=== PATIENT | female | born 1980 | race Caucasian/White ===

== ENCOUNTER 2025-09-22 20:33 | Emergency (ER) | payer BC, SELFPAY ==
--- OUTSIDE RECORDS SUMMARY | 2025-09-22 20:35 | XMS_ITS | Clinical Summary ---
Author Organization [employer] [facility] & [facility] Address [address] [place] [address] Care Team Providers Care Ladle Repairman Name Role Phone Kenya Lee MD Primary Care Provider Allergies No known active allergies Medications MedicationSigDispense QuantityRefillsLast FilledStart DateEnd DateStatus cholecalciferol (Vitamin D-3) 2,000 unit capsule 5Active cyanocobalamin (Vitamin B-12) 1,000 mcg tablet Indications:Routine general medical examination at a health care facilityTake 1 Tablet (1,000 mcg) by mouth once daily.5Active Active Problems ProblemNoted DateDiagnosed DateMyxomatous degeneration of mitral valve07/15/2025 Sinus moeygdfhpvy32/14/2025dult congenital heart tvbpxvt0104/28/2022ap smear for cervical cancer lwqyychjj38/01/2022 Overview (07/01/2022): 04/2022 NIL/HPV negative. Plan: Pap/HPV due 04/2027. Mitral valve iozxzstz34/05/2019Syncope and /05/2019 Encounters DateTypeDepartmentCare BhvhKqqjfffzyxb53/16/2025Orders Only [facility] [address] [place] [address] Sean Manuel MD 1 scan: (1-Ord) NFLD-EKG-07/15/2510 9:30 AM CDTOffice Visit [facility] [address] [place] [address] Sean Manuel MD Follow Up07/15/20257389Fisobb75/09/2025Travelfrom Last 3 Months Immunizations ImmunizationAdministration DatesNext DueCOVID-19 vaccine (GoSquaredBioNTBrightFunnel 30mcg/0.3mL) PF, MDV110/31/2020INFLUENZA, IIV3 PF (AGE >= 6 MO)07/03/2024 Influenza, WDL335,07/05/2022,07/10/2021Influenza, IIV4 (=>6mos) MDV 07/10/2019Influenyas,CCIIV4 PRESERV FREE07/16/2020,08/15/2018Tdap04/14/2021 Family History Medical HistoryRelationNameCommentsMitral valve prolapseFatherCancer-breast Maternal AuntMitral valve prolapseSisterCancer-ovarianNo Family HistoryRelation NameStatusCommentsFatherMaternal AuntSister Social History Tobacco UseTypesPacks/DayYears UsedDateSmoking Tobacco: NeverPassive Smoke Exposure: NeverSmokeless Tobacco: Never Tobacco Cessation:Counseling Given: No Alcohol UseStandard Drinks/WeekCommentsYes1 (1 standard drink = 0.6 oz pure alcohol)PHQ-2AnswerDate RecordedPHQ-2 TOTAL SFRDT760Social Connections AnswerDate RecordedDo you often feel lonely or isolated from those around you?0 09/13/2024lcohol UseAnswerDate RecordedHow often do you have a drink containing alcohol?How many drinks containing alcohol do you have on a typical day when you are drinking?How often do you have five or more drinks on one occasion?Financial Resource StrainAnswerDate Recorded Difficulty of Paying Living Ffhzxutf223/13/2024ifficulty of Paying Living ExpensesNot on file09/13/2024Food InsecurityAnswerDate RecordedDo you worry your food will run out before you are able to buy more?Transportation NeedsAnswerDate RecordedDoes lack of transportation keep you from medical appointments?112/13/2024Does lack of transportation keep you from work, meetings or getting things that you need?Housing StabilityAnswerDate Recorded What is your housing situation today?UtilitiesAnswerDate RecordedDo you have trouble paying for utilities (for example, heat, electricity, water, phone)?regnantCommentsNoSex and Gender InformationValueDate Recorded Sex Assigned at BirthNot on fileLegal TwmJydjxt09/14/2013 5:22 AM CSTGender IdentityNot on fileSexual OrientationNot on fileOccupationIndustryJob Start Date Job End DateNot on fileNot on fileNot on fileNot on file Obstetrics History GravidaParaTermPretermABIABSABEctopicMultipleLivingLive Nxsief435011LyamPtbcbel GATotal LaborLabor/2nd/1ebQycfmqKxiBxhqErsdAZZYfyC2Q6MienGscgTaschraSeke Last Filed Vital Signs Vital SignReadingTime TakenCommentsBlood Slsaucay787/6507/15/2025 9:33 AM CDT Wutxy611807/15/2025 9:33 AM UCHYxxsbyczauz62.7 ??C (99.8 ??F)09/20/2024 7:35 AM CSTRespiratory Kgfv878711/14/2023 5:26 PM CSTOxygen Zeqjyiipkr168%07/15/2025 9:33 AM CDTInhaled Oxygen Concentration--Zyichp92.6 kg (138 lb)07/15/2025 9:33 AM CDT Yaamjl625.6 cm (5' 9.92)03/19/2025 1:37 PM CDTBody Mass Index19.85003/19/2025 1:37 PM CDT Plan of Treatment DateTypeDepartmentCare Team (Latest Contact Info)Ahzdzripcbt06/12/2026 10:00 AM CSTAncillary Procedure [facility] [address] [place] [address] Health MaintenanceDue DateLast DoneCommentsHIV for age 15-Hepatitis C screening for age 18-Hepatitis B series for 19+ (1 of 3 - 19+ 3- dose series)2000Pneumococcal series for age 6-49 (1 of 2 - PCV)2000 HPV series for age 9-45 (1 - 3-dose SCDM series)2008Influenza Vaccine (#1) /11/2023, 07/05/2023, 07/05/2022, Additional history existsBMI (ht and wt on same day) for age 18+/, 09/13/2024, 05/16/2023, Additional history existsDepression screening for age 12+/, 05/16/2023, 04/28/2022, Additional history existsPap test for age 21-65 , 04/28/2022Tetanus yokrofv44/OVID-19 vaccine uqrrzgKqvwgukyz85/01/2025, 07/03/2024, 07/05/2023, Additional history exists Procedures Procedure NamePriorityDate/TimeAssociated DiagnosisCommentsEKG 12 LEADRoutine 07/17/2025 8:52 AM CDT Mitral valve prolapse Sinus bradycardia [place] READING EKG - NO CHARGE, COMP DIKNGwosygv54/16/2025 8:51 AM CDT Mitral valve prolapse Sinus bradycardia HPV HIGH RWPYBcujgnk30/28/2022 11:27 AM CDT Screening for cervical cancer from Last 3 Months or Most Recently Relevant to Health Maintenance Results * EKG 12 LEAD (07/17/2025 8:52 AM CDT) Narrative Authorizing ProviderResult TypeResult StatusMarlópez Manuel MDEKG ORDFinal Result * [place] READING EKG - NO CHARGE, COMP ONLY (07/17/2025 8:51 AM CDT) Narrative Authorizing ProviderResult TypeResult StatusMario Goessl MDPB - PROVIDER READINGSFinal Result * HPV HIGH RISK (04/28/2022 11:27 AM CDT)ComponentValueRef RangeTest Method Analysis TimePerformed AtPathologist SignatureTYPE 16NegativeNegative 05/02/2022 2:06 PM CDPEARL RIVER [facility]-CENTRAL LABORATORYTYPE 18 IjzkncxqAalsitmu26/01/2022 2:06 PM CDCHOCT[facility]ENTERCENTRAL LABORATORYOTHER HIGH RISK MTLAWXrsfkyccInvsprdd52/01/2022 2:06 PM CDCHOCTAW HEALTH CENTERCENTRAL LABORATORYSpecimen (Source)Anatomical Location / LateralityCollection Method / VolumeCollection TimeReceived TimeOther (Cervical)Non-Blood / Rmjyfhh3804/28/2022 11:27 AM CDT04/29/2022 8:59 AM CDT Narrative [facility]EN[facility] - 05/02/2022 2:06 PM CDT HPV types 16, 18, 31, 33, 35, 39, 45, 51, 52, 56, 58, 59, 66 and 68 DNA were undetectable or below the pre-set threshold. Methodology: Yulissa Robert 4800 HPV Test Authorizing ProviderResult TypeResult StatusMelissa Christopher Lee MDMICROBIOLOGY Final ResultPerforming OrganizationAddressCity/State/ZIP CodePhone Number [facility] [address] [place] [address], from Last 3 Months or Most Recently Relevant to Health Maintenance Insurance * Guarantor: Mayra Womack TypeRelation to PatientDate of BirthPhone Billing AddressPersonal/EtqwapSosx[address] [place] [address] * Guarantor: Mayra Womack TypeRelation to PatientDate of BirthPhone Billing AddressPersonal/PsbksqMhep1980 [place] [address] Care Teams Team MemberRelationshipSpecialtyStart DateEnd Date Kenya Lee MD [address] [place] [address] PCP - GeneralFavaly [facility]04/14/21
[2025-09-22 20:50] VITALS: BP 128/78; PULSE 52; RESP 16; TEMP 36.9; O2SAT 96; BMI 20.1
--- NOTE | 2025-09-22 23:30 | ED_ITS ---
HPI - Wound/Laceration General Date Seen: 09/22/25 Chief Complaint: Laceration/Wound Stated Complaint: LAC on L hand Time Seen by Provider: 09/22/25 23:21 Source: patient, family and RN notes reviewed Mode of arrival: ambulatory Limitations: no limitations History of Present Illness HPI narrative: Mayra is a very pleasant 45-year-old female unknown last tetanus who comes to the emergency room for evaluation regarding laceration to her left index finger. She was using a clean knife to cut some redness slipped causing a flap-like laceration. She did clean it briefly under some running water but then placed and a bandage to hold pressure as it is continued to bleed. Unfortunately chris we had an extended wait in the ED and she has been seeing almost 3 hours after her arrival. She continues to have some oozing from the area. She is not sure when her last tetanus was but feels that it is most likely up-to-date. Related Data Home Medications ?Medication ?Instructions ?Recorded ?Confirmed No Known Home Medications 09/22/2509/02 Allergies Allergy/AdvReac Type Severity Reaction Status Date / Time No Known Drug Allergies Allergy Verified 09/22/25 20:56 Review of Systems Narrative: No use of anticoagulants. History of diabetes. Exam Narrative: Exam Narrative: Alert and oriented no acute distress. Examination of the finger shows a flap laceration to the volar lateral aspect of the index finger. No obvious foreign bodies noted. There does not appear to be any compromise of the joint. Total length of the flap measures approximately 2 cm. Nail is not compromised. Const: Vital Signs, click to edit/add: Vital Signs - 24 hr 09/22/25 20:50 Temperature 98.5 F Pulse Rate [Pulse Oximeter] 52 L Respiratory Rate 16 Blood Pressure [Ri ght Upper Arm] 128/78 Pulse Oximetry 96 Oxygen Delivery Me thod Room Air Documenting provider has reviewed patient's vital signs: yes Course Course ED Course: Patient did run her finger in her water but I do not feel it was adequate group B clean therefore we will soak it in some Hibiclens. I do think out be able to use Dermabond. Reevaluation(s) Reevaluation #1: Patient's wound is cleansed with Hibiclens. Wound edges are coming together nicely and thus I use 2 separate vials of Dermabond. Vital Signs Vital signs: Initial Vital Signs Temperature 98.5 F 09/22/25 20:50 Temperature Source Temporal Artery Scan 09/22/25 20:50 Pulse Rate 52 L 09/22/25 20:50 Respiratory Rate 16 09/22/25 20:50 Blood Pressure 128/78 09/22/25 20:50 Blood Pressure Mean 94 09/22/25 20:50 Blood Pressure Position Sitting 09/22/25 20:50 Pulse Oximetry 96 09/22/25 20:50 Oxygen Delivery Method Room Air 09/22/25 20:50 Vital Signs Temperature 98.5 F 09/22/25 20:50 Pulse Rate 52 L 09/22/25 20:50 Respiratory Rate 16 09/22/25 20:50 Blood Pressure 128/78 09/22/25 20:50 Pulse Oximetry 96 09/22/25 20:50 Oxygen Delivery Method Room Air 09/22/25 20:50 Temperature 98.5 F 09/22/25 20:50 Pulse Rate 52 L 09/22/25 20:50 Respiratory Rate 16 09/22/25 20:50 Blood Pressure 128/78 09/22/25 20:50 Pulse Oximetry 96 09/22/25 20:50 Oxygen Delivery Method Room Air 09/22/25 20:50 MDM - Wound/Laceration MDM Narrative Medical decision making narrative: 1. Finger laceration repair-repaired with Dermabond. Discussed with patient avoidance of petroleum based products. Avoid prolonged soaking of hands but may bathe or wash hands. Ibuprofen or Tylenol as needed for discomfort. Monitor for signs and symptoms of infection. Tetanus is up-to-date and was received in 2020. 2. Disposition-home at this time. Return for worsening symptoms and as needed. Discharge Plan Discharge Clinical Impression: Laceration Patient Disposition: Home, Self-Care Condition: Improved Additional Instructions: Avoid prolonged soaking but you may shower and wash her hands. Avoid any petroleum based products as this may weaken the glue. Expect the glue to become opaque and light purple. Gradually the edges will start peeling away. To the best of your ability try to leave it in place. Seek medical attention for worsening symptoms especially increasing redness, fever, signs of infection. Prescriptions: No Action No Known Home Medications Stand Alone Forms: [facility] Info Instructions
[2025-09-23 00:20] VITALS: BP 113/71; PULSE 51; RESP 16; O2SAT 98
--- OUTSIDE RECORDS SUMMARY | 2025-09-23 00:28 | XMS_ITS | Clinical Summary ---
Author Organization [employer] [facility] Address [address] [place] [address] Care Team Providers Care Airline Station Agent Name Role Phone Kenya Lee MD Primary Care Provider [phone] Allergies No known active allergies Medications MedicationSigDispense QuantityRefillsLast FilledStart DateEnd DateStatus cholecalciferol (Vitamin D-3) 2,000 unit capsule 5Active cyanocobalamin (Vitamin B-12) 1,000 mcg tablet Indications:Routine general medical examination at a health care facilityTake 1 Tablet (1,000 mcg) by mouth once daily.5Active Active Problems ProblemNoted DateDiagnosed DateMyxomatous degeneration of mitral valve07/15/2025 Sinus ctwcpgcwkoe83/14/2025dult congenital heart sqaqohe9204/28/2022ap smear for cervical cancer jdtlmfvmi72/01/2022 Overview (07/01/2022): 04/2022 NIL/HPV negative. Plan: Pap/HPV due 04/2027. Mitral valve cmrafaga39/05/2019Syncope and nqbdkyzn89/05/2019 Encounters DateTypeDepartmentCare CuimDxtletattmq71/16/2025Orders Only [facility] [address] [place] [address] Sean Manuel MD 1 scan: (1-Ord) NFLD-EKG-07/15/2510 9:30 AM CDTOffice Visit [facility] [address] [place] [address] Sean Manuel MD Follow Up07/15/20250943Miyhta56/09/2025Travelfrom Last 3 Months Immunizations ImmunizationAdministration DatesNext DueCOVID-19 vaccine (ViralizeBioNTbasestone 30mcg/0.3mL) PF, MDV110/31/2020INFLUENZA, IIV3 PF (AGE >= 6 MO)07/03/2024 Influenza, PKU984,07/05/2022,07/10/2021Influenza, IIV4 (=>6mos) MDV 07/10/2019Influenyas,CCIIV4 PRESERV FREE07/16/2020,08/15/2018Tdap04/14/2021 Family History Medical HistoryRelationNameCommentsMitral valve prolapseFatherCancer-breast Maternal AuntMitral valve prolapseSisterCancer-ovarianNo Family HistoryRelation NameStatusCommentsFatherMaternal AuntSister Social History Tobacco UseTypesPacks/DayYears UsedDateSmoking Tobacco: NeverPassive Smoke Exposure: NeverSmokeless Tobacco: Never Tobacco Cessation:Counseling Given: No Alcohol UseStandard Drinks/WeekCommentsYes1 (1 standard drink = 0.6 oz pure alcohol)PHQ-2AnswerDate RecordedPHQ-2 TOTAL SSTVV192Social Connections AnswerDate RecordedDo you often feel lonely or isolated from those around you?0 09/13/2024lcohol UseAnswerDate RecordedHow often do you have a drink containing alcohol?How many drinks containing alcohol do you have on a typical day when you are drinking?How often do you have five or more drinks on one occasion?Financial Resource StrainAnswerDate Recorded Difficulty of Paying Living Ysbsmjiq460/13/2024ifficulty of Paying Living ExpensesNot on file09/13/2024Food InsecurityAnswerDate [...] Recorded Sex Assigned at BirthNot on fileLegal TbrIhjljs81/14/2013 5:22 AM CSTGender IdentityNot on fileSexual OrientationNot on fileOccupationIndustryJob Start Date Job End DateNot on fileNot on fileNot on fileNot on file Obstetrics History GravidaParaTermPretermABIABSABEctopicMultipleLivingLive Jvsbaz428662JuyxKgnvths GATotal LaborLabor/2nd/4asYcvjcgQxtYhfvBbghVSWZguK1P6LqdaFamgVufflldXlmh Last Filed Vital Signs Vital SignReadingTime TakenCommentsBlood Yegvukdk454/6507/15/2025 9:33 AM CDT Limyr553507/15/2025 9:33 AM GNPKkiznceraim95.7 ??C (99.8 ??F)09/20/2024 7:35 AM CSTRespiratory Orvz798211/14/2023 5:26 PM CSTOxygen Bbisvwfotu857%07/15/2025 9:33 AM CDTInhaled Oxygen Concentration--Aatvjy82.6 kg (138 lb)07/15/2025 9:33 AM CDT Aijorh143.6 cm (5' 9.92)03/19/2025 1:37 PM CDTBody Mass Index19.85003/19/2025 1:37 PM CDT Plan of Treatment DateTypeDepartmentCare Team (Latest Contact Info)Nzqsadzhklq86/12/2026 10:00 AM CSTAncillary Procedure [facility] [address] [place] [address] Health MaintenanceDue DateLast DoneCommentsHIV for [...] existsPap test for age 21-65 , 04/28/2022Tetanus lmxzyos40/OVID-19 vaccine ahdwdoEjnmyrjlp38/01/2025, 07/03/2024, 07/05/2023, Additional history exists Procedures Procedure NamePriorityDate/TimeAssociated DiagnosisCommentsEKG 12 LEADRoutine 07/17/2025 8:52 AM CDT Mitral valve prolapse Sinus bradycardia [place] READING EKG - NO CHARGE, COMP YJWNInjbsfo64/16/2025 8:51 AM CDT Mitral valve prolapse Sinus bradycardia HPV HIGH TXZJBoyygbf83/28/2022 11:27 AM CDT Screening for cervical cancer from Last 3 Months or Most Recently Relevant to Health Maintenance Results * EKG 12 LEAD (07/17/2025 8:52 AM CDT) Narrative Authorizing ProviderResult TypeResult StatusMarlópez Manuel MDEKG ORDFinal Result * [place] READING EKG - NO CHARGE, COMP ONLY (07/17/2025 8:51 AM CDT) Narrative Authorizing ProviderResult TypeResult StatusMario Goessl MDPB - PROVIDER READINGSFinal Result * HPV HIGH RISK (04/28/2022 11:27 AM CDT)ComponentValueRef RangeTest Method Analysis TimePerformed AtPathologist SignatureTYPE 16NegativeNegative 05/02/2022 2:06 PM CDPARKWOOD [facility]-CENTRAL LABORATORYTYPE 18 OcrhtdcgQylregjh66/01/2022 2:06 PM CDJEFFERSON COMPRE[facility]ENSIVE HEALTH CENTERCENTRAL LABORATORYOTHER HIGH RISK CGWSRUljqsrzzPihezbtr33/01/2022 2:06 PM CDJEFFERSON COMPRE[facility]ENSIVE HEALTH CENTERCENTRAL LABORATORYSpecimen (Source)Anatomical Location / LateralityCollection Method / VolumeCollection TimeReceived TimeOther (Cervical)Non-Blood / Hrhnxmv6104/28/2022 11:27 AM CDT04/29/2022 8:59 AM CDT Narrative [facility]EN[facility]AL [facility] - 05/02/2022 2:06 PM CDT HPV types 16, 18, 31, 33, 35, 39, 45, 51, 52, 56, 58, 59, 66 and 68 DNA were undetectable or below the pre-set threshold. Methodology: Yulissa Robert 4800 HPV Test Authorizing ProviderResult TypeResult StatusMelissa Christopher Lee MDMICROBIOLOGY Final ResultPerforming OrganizationAddressCity/State/ZIP CodePhone Number [facility] [address] [place] [address], from Last 3 Months or Most Recently Relevant to Health Maintenance Insurance * Guarantor: Mayra Womack TypeRelation to PatientDate of BirthPhone Billing AddressPersonal/PkykcwFqpm1980 [employer] [place] [address] * Guarantor: Mayra Womack TypeRelation to PatientDate of BirthPhone Billing AddressPersonal/LbmownQoqi1980 [employer] [place] [address] Care Teams Team MemberRelationshipSpecialtyStart DateEnd Date Kenya Lee MD [address] [place] [address] PCP - GeneralFadely [facility]04[facility]/21
== END 2025-09-23 00:29 | disposition home or self-care (01) ==
LOC: ED 09-23 00:27
PROVIDERS: Emergency Provider Family Medicine; PCP Family Medicine
DX: S61.211A Laceration without foreign body of left index finger without damage to nail, initial encounter (principal); W26.0XXA Contact with knife, initial encounter
CPT/HCPCS: 12001; 99282; 99283